=== PATIENT | male | born 2000 ===

== ENCOUNTER 2020-04-11 08:10 | Outpatient (CLI) | payer OTHER | END 2020-04-11 08:24 | disposition home or self-care (01) | LOC: RAD 08:10 | PROVIDERS: ATTEND Physical Medicine & Rehabilitation | DX: M77.11 Lateral epicondylitis, right elbow (principal); M79.641 Pain in right hand ==

== ENCOUNTER → 2020-04-27 | Outpatient (CLI) | payer OTHER | END | disposition home or self-care (01) | LOC: RAD 08:45 | PROVIDERS: ATTEND Physical Medicine & Rehabilitation | DX: M25.521 Pain in right elbow (principal) ==

== ENCOUNTER → 2024-10-31 | Outpatient (CLI) | payer OTHER | END | disposition home or self-care (01) | LOC: TOM 07:30 | DX: R63.4 Abnormal weight loss (principal) ==